=== PATIENT | male | born 1965 ===

== ENCOUNTER 2017-03-31 21:53 | Emergency (ER) | payer OTHER ==
[~2017-03-31 21:53] MED LIST: Ciprofloxacin 500 MG Tab ONE
--- NOTE | 2017-03-31 22:08 | EDM.PDOC ---
ED HPI GENERAL MEDICAL PROBLEM - General Chief Complaint: Genitourinary Problem Stated Complaint: UNABLE TO VOID Time Seen by Provider: 03/31/17 22:00 Source of Information: Reports: Patient History Limitations: Reports: No Limitations - History of Present Illness INITIAL COMMENTS - FREE TEXT/NARRATIVE: Pt is from [place], [place]. He claims that since today afternoon, he has been having burning sensation with urination and frequent urination. Has had some fever today afternoon, which resolved with tylenol. No nausea or vomiting. No back pain or headache. Does c/o of mild suprapubic discomfort. he has been trying to drink water and hydrate well and flush the bladder, Pt does have history of recurrent kidney stone, but he feels this is different. No perineal pain or discomfort. No other complaints Onset: Today Onset Date: 03/31/17 Onset Time: 12:00 Duration: Intermittent Severity: Mild Improves with: Reports: None Worsens with: Reports: None Associated Symptoms: Reports: Fever/Chills. Denies: Confusion, Chest Pain, Cough, Diaphoresis, Loss of Appetite, Nausea/Vomiting, Rash, Seizure, Shortness of Breath, Syncope, Weakness - Related Data Allergies Allergy/AdvReac Type Severity Reaction Status Date / Time No Known Allergies Allergy Verified 03/31/17 22:25 Home Meds: Home Meds NK [No Known Home Meds] 03/31/17 [History] ED ROS GENERAL - Review of Systems Review Of Systems: See Below Constitutional: Reports: Fever. Denies: Chills, Malaise, Diaphoresis HEENT: Reports: Nosebleed. Denies: Sinus Problem, Throat Pain, Throat Swelling Respiratory: Denies: Cough, Sputum Cardiovascular: Denies: Chest Pain, Lightheadedness GI/Abdominal: Reports: Abdominal Pain (suprapubic). Denies: Nausea, Vomiting : Reports: Dysuria, Frequency, Urgency. Denies: Discharge, Flank Pain, Hematuria, Urinary Retention Musculoskeletal: Denies: Joint Pain, Joint Swelling Skin: Denies: Bruising, Pruritis, Rash Neurological: Denies: Dizziness, Headache ED EXAM, GENERAL - Physical Exam Exam: See Below Exam Limited By: No Limitations General Appearance: Alert, WD/WN, No Apparent Distress Eye Exam: Bilateral Eye: EOMI, PERRL Ears: Normal External Exam, Normal Canal, Hearing Grossly Normal, Normal TMs Ear Exam: Bilateral Ear: Auricle Normal, Canal Normal, TM normal Nose: Normal Inspection, Normal Mucosa, No Blood Throat/Mouth: Normal Inspection, Normal Lips, Normal Teeth, Normal Gums, Normal Oropharynx, Normal Voice, No Airway Compromise Head: Atraumatic, Normocephalic Neck: Normal Inspection, Supple, Non-Tender, Full Range of Motion Respiratory/Chest: No Respiratory Distress, Lungs Clear, Normal Breath Sounds, No Accessory Muscle Use, Chest Non-Tender Cardiovascular: Normal Peripheral Pulses, Regular Rate, Rhythm, No Edema, No Gallop, No JVD, No Murmur, No Rub GI/Abdominal: Normal Bowel Sounds, Soft, No Organomegaly, Tender (Mild suprapubic discomfort). No: Guarding, Rigid, Rebound Course - Vital Signs Text/Narrative:: Pt's UA does show large leucoestrase with plenty of WBC in urine few RBCs. Also his white count is elevated at 14.9 with neutrophilia. Pt does have acute UTI. Very unusual for men. I have advised him plenty fluid, started him on cipro 500mg twice daily. 1-2 glass of cranberry juice. Will have urine culture done and will followup with results. Pt advised to followup with his primary care provider once back home. Last Recorded V/S: Last Vital Signs Temp 98.4 F 03/31/17 21:56 Pulse 97 03/31/17 21:56 Resp 20 03/31/17 21:56 BP 130/83 03/31/17 21:56 Pulse Ox 100 03/31/17 21:56 - Orders/Labs/Meds Orders: Active Orders 24 hr Category Date Time Status UA W/MICROSCOPIC [URIN] Stat Lab 03/31/17 22:24 Results Labs: Laboratory Tests 03/31/17 03/31/17 Range/Units 22:10 22:24 WBC 14.9 H (4.0-11.0) K/uL RBC 4.63 (4.50-6.50) M/uL Hgb 13.7 (13.0-18.0) g/dL Hct 40.1 (40.0-54.0) % MCV 87 (76-96) fL MCH 29.6 (27.0-32.0) pg MCHC 34.2 (31.0-35.0) g/dL RDW 12.9 (11.0-16.0) % Plt Count 210 (150-400) K/uL MPV 9.2 (6.0-10.0) fL Neut % (Auto) 74.3 H (45.0-70.0) % Lymph % (Auto) 16.1 L (20.0-40.0) % Dickson % (Auto) 9.0 (3.0-10.0) % Eos % (Auto) 0.5 L (1.0-5.0) % Baso % (Auto) 0.1 (0.0-0.5) % Neut # (Auto) 11.05 H (2.00-7.50) K/uL Lymph # (Auto) 2.39 (1.50-4.00) K/uL Dickson # (Auto) 1.34 H (0.20-0.80) K/uL Eos # (Auto) 0.08 (0.04-0.40) K/uL Baso # (Auto) 0.02 (0.02-0.10) K/uL Urine Color Yellow Urine Appearance Slightly cloudy (CLEAR) Urine pH 6.5 (5.0-8.0) Ur Specific [place] 1.010 (1.003-1.030) Urine Protein Trace H (NEGATIVE) mg/dL Urine Glucose (UA) Negative (NEGATIVE) mg/dL Urine Ketones Negative (NEGATIVE) mg/dL Urine Occult Blood Moderate H (NEGATIVE) Urine Nitrite Negative (NEGATIVE) Urine Bilirubin Negative (NEGATIVE) Urine Urobilinogen 0.2 (0.2-1.0) E.U./dL Ur Leukocyte Esterase Large H (NEGATIVE) Departure - Departure Time of Disposition: 22:45 Disposition: Home, Self-Care 01 Condition: Fair Clinical Impression: UTI (urinary tract infection) - Discharge Information Forms: ED Department Discharge Additional Instructions: Pt's UA does show large leucoestrase with plenty of WBC in urine few RBCs. Also his white count is elevated at 14.9 with neutrophilia. Pt does have acute UTI. I have advised him plenty fluid, started him on cipro 500mg twice daily. 1-2 glass of cranberry juice. Will have urine culture done and will followup with results. Pt advised to followup with his primary care provider once back home. - Problem List & Annotations (1) UTI (urinary tract infection) SNOMED Code(s): 94340121 Code(s): N39.0 - URINARY TRACT INFECTION, SITE NOT SPECIFIED Status: Acute Current Visit: Yes - Problem List Review Problem List Initiated/Reviewed/Updated: Yes - My Orders Last 24 Hours: My Active Orders 03/31/17 22:24 UA W/MICROSCOPIC [URIN] Stat - Assessment/Plan Last 24 Hours: My Active Orders 03/31/17 22:24 UA W/MICROSCOPIC [URIN] Stat Assessment:: Acute UTI
== END 2017-03-31 22:41 | disposition home or self-care (01) ==
LOC: LB.ED 21:53
DX: N39.0 Urinary tract infection, site not specified (principal)
CPT/HCPCS: 36415; 81001; 85025; 87086; 87088; 87186; 99283; A9270-GY